=== PATIENT | female | born 1990 | race Two or more races ===

== ENCOUNTER 2020-03-11 18:12 | Emergency (ER) | payer MEDICAID ==
[~2020-03-11] VITALS: Ht 152.4 cm; Wt 70.0 kg
[2020-03-11] MEDS ORDERED: ACETAMINOPHEN 325MG TABLET PO ONE (19:15)
[2020-03-11] MEDS ORDERED: BACITRACIN ZINC OINT UDPKT TOP ONE (19:15)
[2020-03-11] MEDS ORDERED: BACITRACIN 15GM TUBE TOP ONE (19:30)
[2020-03-11 20:36] VITALS: BP 100/74
== END 2020-03-11 20:37 | disposition home or self-care (01) ==
LOC: ER 18:12
DX: T81.49XA Infection following a procedure, other surgical site, initial encounter (principal); F42.4 Excoriation (skin-picking) disorder; Z98.890 Other specified postprocedural states
CPT/HCPCS: 87070; 87077; 87186; 99283